=== PATIENT | male | born 1995 | race Caucasian/White ===

== ENCOUNTER 2019-09-22 23:40 | Emergency (ER) | payer BC ==
[~2019-09-22] VITALS: Ht 185.4 cm; Wt 81.6 kg
[2019-09-22 23:50] VITALS: BP 122/69
--- NOTE | 2019-09-22 23:50 | NUR ---
TO BED # 04 AMBULATORY
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
[2019-09-23] MEDS ORDERED: DICYCLOMINE HCL LIQUID 20 MG, ALUMINUM HYD/MAG/SIMETHICONE 30 ML, LIDOCAINE VISCOUS 2% ... PO ONE ×3 (00:10)
[2019-09-23] MEDS ORDERED: LIDOCAINE VISCOUS 2% 20 ML UDC ONE (00:10)
[2019-09-23] MEDS ORDERED: DICYCLOMINE HCL LIQUID 10 MG/5 ML UDC ONE (00:11)
[2019-09-23] MEDS ORDERED: ALUMINUM HYD/MAG/SIMETHICONE 30 ML UDC ONE (00:11)
--- NOTE | 2019-09-23 00:13 | NUR ---
PATIENT REFUESED LABS.
--- NOTE | 2019-09-23 00:30 | NUR ---
REPORT RECEIVED FROM CHANNING QUARLES. BACK FROM BREAK, WILL CONTINUE CARE OF PT
[2019-09-23] MEDS ORDERED: ONDANSETRON 4 MG/2 ML VIAL IVP ONE (00:40)
--- NOTE | 2019-09-23 00:40 | NUR ---
PT STATES HE DOES WANT LABS DRAWN AFTER ALL, PT IS ACTIVELY VOMITTING. ERMD NOTIFIED
[2019-09-23 00:55] LABS: BASOPHILS % (AUTO) 0.5 % (0.0-2.0); EOSINOPHILS # (AUTO) 0.2 K/uL (0-0.4); EOSINOPHILS % (AUTO) 2.9 % (0.0-4.0); HEMATOCRIT 47.3 % (36-52); HEMOGLOBIN 15.7 g/dL (12.0-18.0); LYMPHOCYTES # (AUTO) 2.1 K/uL (2.0-11.5); LYMPHOCYTES % (AUTO) 25.7 % (20.5-51.1); MEAN CORPUSCULAR HEMOGLOBIN 32 pg (27-31); MEAN CORPUSCULAR HGB CONC 33 g/dL (33-37); MEAN CORPUSCULAR VOLUME 95.9 fL (80-94); MONOCYTES # (AUTO) 0.5 K/uL (0.8-1.0); MONOCYTES % (AUTO) 6.6 % (1.7-9.3); NEUTROPHILS # (AUTO) 5.2 K/uL (1.8-7.7); NEUTROPHILS % (AUTO) 64.3 % (42.2-75.2); PLATELET COUNT (AUTO) 237 K/uL (140-450); RED BLOOD CELL COUNT(AUTO) 4.93 MIL/uL (4.20-6.10); RED CELL DISTRIBUTION WIDTH 12.3 % (11.6-13.7); WHITE BLOOD COUNT (AUTO) 8.1 K/uL (4.8-10.8)
[2019-09-23 01:10] LABS: ALBUMIN 4.4 g/dL (3.4-5.0); ANION GAP 14.4 (8-16); CARBON DIOXIDE 29.3 mmol/L (21-32); CREATININE 0.9 mg/dL (0.6-1.3); POTASSIUM 3.7 mmol/L (3.5-5.1); TOTAL BILIRUBIN 0.4 mg/dL (0.0-1.0)
[2019-09-23] MEDS ORDERED: MORPHINE SULFATE 4 MG/ML SYR IVP ONE (01:10)
--- NOTE | 2019-09-23 02:32 | NUR ---
PATIENT ALERT AND AWAKE, BREATHING EVEN AND UNLABORED
[2019-09-23 02:55] VITALS: BP 108/61
--- NOTE | 2019-09-23 02:55 | NUR ---
Patient discharged with v/s stable. Written and verbal after care instructions about abdominal pain given and explained. Patient alert, oriented and verbalized understanding of instructions. Ambulatory with steady gait. All questions addressed prior to discharge. ID band removed. Patient advised to follow up with PMD. Rx of pepcid given. Patient educated on indication of medication including possible reaction and side effects. Opportunity to ask questions provided and answered. Patient understands not to drive due to medicaiton, will have friend drive.
== END 2019-09-23 02:55 | disposition home or self-care (01) ==
LOC: MED 23:40
DX: R10.84 Generalized abdominal pain (principal)
CPT/HCPCS: 36415; 76705; 80053; 85025; 96374; 96375; 99284; J2270; J2405; Q0092